=== PATIENT | female | born 1930 | race Caucasian/White ===

== ENCOUNTER → 2016-10-31 13:46 | Outpatient (CLI) | payer MEDICARE, OTHER ==
[2016-10-31 14:37] LABS: BASOPHILS 0 % (0.0-2.0); EOSINOPHILS 1.2 % (0-7); HEMATOCRIT 32.7 % (36.0-48.0); HEMOGLOBIN 10.6 g/dL (12-16); IMMATURE GRANULOCYTES 0.3 % (0-5); LYMPHOCYTES 25.6 % (15-50); MCH 31.1 pg (26.0-34.0); MCHC 32.4 g/dL (31.0-37.0); MCV 95.9 fL (80.0-100.0); MEAN PLATELET VOLUME 9.9 fL (7.4-10.4); MONOCYTES 12.8 % (2-11); NEUTROPHILS 60.1 % (40-80); PLATELET COUNT 162 10x3/uL (130-400); RBC 3.41 10x6/uL (4.00-5.40); RDW 16.3 % (11.5-14.5); WBC 7.7 10x3/uL (4.8-10.8)
[2016-10-31 15:44] LABS: ANION GAP 13.2 mmol/L (8-16); CALCIUM 9.4 mg/dL (8.5-10.1); CARBON DIOXIDE 28.8 mmol/L (21.0-32.0); CREATININE - SERUM 1.2 mg/dL (0.6-1.3)
== END | disposition home or self-care (01) ==
LOC: D.RAD 13:46
PROVIDERS: Internal Medicine Pulmonary Disease
DX: J44.9 Chronic obstructive pulmonary disease, unspecified (principal)

== ENCOUNTER → 2017-07-15 12:12 | Outpatient (CLI) | payer MEDICARE, OTHER | END | disposition home or self-care (01) | LOC: D.RT 09:00 → D.RAD 10:00 → D.RT 12:12 | DX: J44.9 Chronic obstructive pulmonary disease, unspecified (principal) ==